=== PATIENT | female | born 1965 | race Caucasian/White ===

== ENCOUNTER 2018-06-22 09:04 | Emergency (ER) | payer MEDICAID ==
[~2018-06-22] VITALS: Ht 167.6 cm; Wt 154.6 kg
[~2018-06-22 09:04] MED LIST: AZIT-63 PO; BENZ-16 PO; GUAI10SY2 PO; HYDR-565 PO; LEVA15HF4 IH; NO HOME MEDS; ONDA4TAB12 PO; ORPH100T2 PO; PRED20TA PO; PSEU-225 PO
[2018-06-22 09:59] LABS: BASOPHILS % (AUTO) 0.4 % (0-1); EOSINOPHILS # (AUTO) 0.3 X10'3 (0-0.9); EOSINOPHILS % (AUTO) 2.8 % (0-6); HEMATOCRIT 39.2 % (35.0-45.0); HEMOGLOBIN 13.2 g/dl (12.0-16.0); LYMPHOCYTES # (AUTO) 1.4 X10'3 (1.1-4.8); LYMPHOCYTES % (AUTO) 15.2 % (21-51); MEAN CORPUSCULAR HEMOGLOBIN 31.2 PG (27.0-31.0); MEAN CORPUSCULAR HGB CONC 33.8 % (33.0-36.5); MEAN CORPUSCULAR VOLUME 92.6 FL (78-98); MEAN PLATELET VOLUME 8.2 FL (7.4-10.4); MONOCYTES # (AUTO) 0.4 X10'3 (0-0.9); MONOCYTES % (AUTO) 4.7 % (2-12); NEUTROPHILS # (AUTO) 6.9 X10'3 (1.8-7.7); NEUTROPHILS % (AUTO) 76.9 % (42-75); PLATELET COUNT 317 X10'3 (140-440); RED BLOOD COUNT 4.24 X10'6 (4.20-5.60); RED CELL DISTRIBUTION WIDTH 13.3 % (11.5-14.5)
[2018-06-22 10:07] LABS: INR 0.9 INR; PROTHROMBIN TIME 9.8 SECONDS (9.0-12.0)
[2018-06-22 10:13] LABS: ALANINE AMINOTRANSFERASE 50 U/L (12-78); ALBUMIN 3.7 G/DL (3.4-5.0); ALBUMIN/GLOBULIN RATIO 0.9 (1.1-1.5); ALKALINE PHOSPHATASE 102 IU/L (46-116); ANION GAP 11 (8-16); ASPARTATE AMINO TRANSFERASE 39 U/L (10-37); BILIRUBIN,TOTAL 0.5 MG/DL (0.1-1.0); BLOOD UREA NITROGEN 10 MG/DL (7-18); BUN/CREATININE RATIO 9.3 (6.6-38.0); CALCIUM 9.5 MG/DL (8.5-10.1); CHLORIDE 102 MMOL/L (99-107); CREATININE 1.08 MG/DL (0.40-0.90); GLUCOSE 149 MG/DL (70-104); POTASSIUM 3.9 MMOL/L (3.5-5.1); SODIUM 138 MMOL/L (135-145); TOTAL CARBON DIOXIDE 24.7 MMOL/L (24-32); TOTAL PROTEIN 7.8 G/DL (6.4-8.2); eGFR 53 ML/MIN
[2018-06-22] MEDS ORDERED: ondansetron/PF 4mg/2ml inj IV ONE (10:20)
[2018-06-22] MEDS ORDERED: morphine 4 MG/ML inj SYRINge IV ONE (10:20)
[2018-06-22] MEDS ORDERED: ketorolac trometh. 30mg/ml inj. IV ONE (10:20)
[2018-06-22] MEDS ORDERED: normal saline 1000ML IV soln IVB ONE (10:20)
[2018-06-22 10:38] LABS: URINE HCG NEGATIVE (NEG)
[2018-06-22 10:41] LABS: CLARITY,URINE SLIGHTLY CLOUDY (Clear); COLOR,URINE YELLOW (Yellow); GLUCOSE, URINE NEGATIVE (Neg); KETONES,URINE TRACE mg/dl (Neg); LEUKOCYTE ESTERASE ,URINE NEGATIVE (Neg); NITRITES, URINE NEGATIVE (Neg); OCCULT BLOOD,URINE SMALL (Neg); PROTEIN,URINE TRACE mg/dl (Neg); UA COLLECTION TYPE CLN CATCH MIDSTREAM
[2018-06-22 10:50] LABS: BACTERIA,URINE FEW /HPF (Neg); MUCUS STRANDS MODERATE /LPF (Neg); RBC,URINE 0-2 /HPF (0-2); SQUAMOUS EPITHELIAL CELL,UR MODERATE /LPF (FEW); WBC,URINE 0-4 /HPF (0-4)
[2018-06-22] MEDS ORDERED: ONDA4TAB6 PO (12:21)
[2018-06-22 12:46] VITALS: BP 106/60
== END 2018-06-22 12:49 | disposition home or self-care (01) ==
LOC: ER 09:04
DX: R10.31 Right lower quadrant pain (principal); I10 Essential (primary) hypertension; Z79.2 Long term (current) use of antibiotics; Z79.899 Other long term (current) drug therapy
CPT/HCPCS: 36415; 74176; 80053; 81001; 81025; 85025; 85610; 96374; 96375; 99285; J1885; J2270; J2405; J7030

== ENCOUNTER 2018-07-01 14:58 | Inpatient (IN) | payer MEDICAID, OTHER ==
[~2018-07-01] VITALS: Ht 167.6 cm; Wt 154.6 kg
[~2018-07-01 14:58] MED LIST changes: +ONDA4TAB6 PO
[2018-07-01 15:45] LABS: CLARITY,URINE SLIGHTLY CLOUDY (Clear); COLOR,URINE YELLOW (Yellow); GLUCOSE, URINE NEGATIVE (Neg); KETONES,URINE TRACE mg/dl (Neg); LEUKOCYTE ESTERASE ,URINE NEGATIVE (Neg); NITRITES, URINE NEGATIVE (Neg); OCCULT BLOOD,URINE NEGATIVE (Neg); PROTEIN,URINE NEGATIVE (Neg)
[2018-07-01 15:46] LABS: URINE HCG NEGATIVE (NEG)
[2018-07-01 15:49] LABS: UA COLLECTION TYPE CLN CATCH MIDSTREAM
[2018-07-01 15:50] LABS: BACTERIA,URINE 1+ /HPF (Neg); HYALINE CASTS 0-3 /LPF (NEGATIVE); MUCUS STRANDS MODERATE /LPF (Neg); SQUAMOUS EPITHELIAL CELL,UR MODERATE /LPF (FEW)
[2018-07-01 15:51] LABS: RBC,URINE 0-2 /HPF (0-2); WBC,URINE 0-4 /HPF (0-4)
[2018-07-01 16:32] LABS: BASOPHILS # (AUTO) 0.2 X10'3 (0-0.2); BASOPHILS % (AUTO) 1.4 % (0-1); EOSINOPHILS # (AUTO) 0.4 X10'3 (0-0.9); EOSINOPHILS % (AUTO) 3.6 % (0-6); HEMATOCRIT 33.9 % (35.0-45.0); HEMOGLOBIN 11.4 g/dl (12.0-16.0); LYMPHOCYTES # (AUTO) 1.7 X10'3 (1.1-4.8); LYMPHOCYTES % (AUTO) 15.8 % (21-51); MEAN CORPUSCULAR HEMOGLOBIN 31.2 PG (27.0-31.0); MEAN CORPUSCULAR HGB CONC 33.5 % (33.0-36.5); MEAN CORPUSCULAR VOLUME 93.1 FL (78-98); MEAN PLATELET VOLUME 7.4 FL (7.4-10.4); MONOCYTES # (AUTO) 0.6 X10'3 (0-0.9); MONOCYTES % (AUTO) 5.5 % (2-12); NEUTROPHILS # (AUTO) 7.8 X10'3 (1.8-7.7); NEUTROPHILS % (AUTO) 73.7 % (42-75); PLATELET COUNT 464 X10'3 (140-440); RED BLOOD COUNT 3.64 X10'6 (4.20-5.60); RED CELL DISTRIBUTION WIDTH 13.5 % (11.5-14.5); WHITE BLOOD COUNT 10.7 X10'3 (4.5-11.0)
[2018-07-01 16:46] LABS: ALANINE AMINOTRANSFERASE 37 U/L (12-78); ALBUMIN 3.2 G/DL (3.4-5.0); ALBUMIN/GLOBULIN RATIO 0.7 (1.1-1.5); ALKALINE PHOSPHATASE 107 IU/L (46-116); ANION GAP 8 (8-16); ASPARTATE AMINO TRANSFERASE 31 U/L (10-37); BILIRUBIN,TOTAL 0.5 MG/DL (0.1-1.0); BLOOD UREA NITROGEN 8 MG/DL (7-18); BUN/CREATININE RATIO 8.8 (6.6-38.0); CALCIUM 9.2 MG/DL (8.5-10.1); CHLORIDE 102 MMOL/L (99-107); CREATININE 0.91 MG/DL (0.40-0.90); GLUCOSE 128 MG/DL (70-104); LIPASE 163 U/L (73-393); POTASSIUM 3.9 MMOL/L (3.5-5.1); SODIUM 142 MMOL/L (135-145); TOTAL CARBON DIOXIDE 32.2 MMOL/L (24-32); TOTAL PROTEIN 7.5 G/DL (6.4-8.2); eGFR 65 ML/MIN
[2018-07-01] MEDS ORDERED: ondansetron/PF 4mg/2ml inj IV ONE (16:55)
[2018-07-01] MEDS ORDERED: normal saline 1000ML IV soln IVB ONE (16:55)
[2018-07-01] MEDS ORDERED: iohexol 300mg/ml 100ml inj. ONE (16:56)
[2018-07-01] MEDS: morphine 4 MG/ML inj SYRINge IV PRN ×3 (16:59→17:58)
[2018-07-01] MEDS ORDERED: morphine 4 MG/ML inj SYRINge IV PRN ×2 (17:35→17:45)
[2018-07-01 18:19] LABS: TOTAL CELLS COUNTED 100
[2018-07-01 18:20] LABS: ANISOCYTOSIS FEW; PLATELET ESTIMATE INCREASED
[2018-07-01 18:21] LABS: TOXIC GRANULATION 1+; TOXIC VACUOLATION FEW
[2018-07-01 18:22] LABS: POLYCHROMASIA 1+
[2018-07-01] MEDS ORDERED: LISI-600 PO (18:53)
[2018-07-01] MEDS ORDERED: LISI1TAB9 (18:55)
[2018-07-01] MEDS ORDERED: PER5325T (18:55)
[2018-07-01] MEDS ORDERED: ketorolac trometh. 30mg/ml inj. IV ONE (19:55)
[2018-07-01] MEDS ORDERED: methylnaltrexone br 12mg/0.6ml inj***SubQ only SQ ONE (19:55)
[2018-07-01] MEDS ORDERED: magnesium hydroxide 30ml (MOM) UD suspension PO ONE (19:55)
[2018-07-01] MEDS ORDERED: mag hydrox/Alum hydrox/simeth 30ml oral suspension PO PRN (20:40)
[2018-07-01] MEDS ORDERED: acetaminophen 325mg tablet PO PRN (20:40)
[2018-07-01] MEDS ORDERED: potassium Cl 20 mEq SR tablet PO PRN ×2 (20:40)
[2018-07-01] MEDS ORDERED: magnesium 1gm/100ml D5W IVPB 100 ML IV PRN (20:40)
[2018-07-01] MEDS ORDERED: magnesium hydroxide 30ml (MOM) UD suspension PO PRN (20:40)
[2018-07-01] MEDS ORDERED: potassium Cl 40MEQ/NS 500ml 500 ML IV PRN ×2 (20:40)
[2018-07-01] MEDS ORDERED: ondansetron/PF 4mg/2ml inj IV PRN (20:40)
[2018-07-01] MEDS ORDERED: magnesium 4gm in 100ml NS 100 ML IV PRN (20:40)
[2018-07-01] MEDS: bisacodyl 10mg suppository rectal RC SCH (21:04)
[2018-07-01 22:00] VITALS: BP 147/46
[2018-07-01] MEDS: normal saline 1000ml 1,000 ML IV SCH (22:39)
[2018-07-02] MEDS: metoclopramide 5 mg/ml inj IV SCH ×2 (00:07→09:01)
[2018-07-02 05:44] LABS: BASOPHILS % (AUTO) 0.3 % (0-1); EOSINOPHILS # (AUTO) 0.3 X10'3 (0-0.9); EOSINOPHILS % (AUTO) 3.4 % (0-6); HEMATOCRIT 29.5 % (35.0-45.0); HEMOGLOBIN 9.8 g/dl (12.0-16.0); LYMPHOCYTES # (AUTO) 1.5 X10'3 (1.1-4.8); MEAN CORPUSCULAR HEMOGLOBIN 31.2 PG (27.0-31.0); MEAN CORPUSCULAR HGB CONC 33.2 % (33.0-36.5); MEAN CORPUSCULAR VOLUME 93.9 FL (78-98); MEAN PLATELET VOLUME 7.3 FL (7.4-10.4); MONOCYTES # (AUTO) 0.6 X10'3 (0-0.9); MONOCYTES % (AUTO) 5.7 % (2-12); NEUTROPHILS # (AUTO) 7.4 X10'3 (1.8-7.7); NEUTROPHILS % (AUTO) 75.6 % (42-75); PLATELET COUNT 354 X10'3 (140-440); RED BLOOD COUNT 3.15 X10'6 (4.20-5.60); RED CELL DISTRIBUTION WIDTH 14.4 % (11.5-14.5); WHITE BLOOD COUNT 9.7 X10'3 (4.5-11.0)
[2018-07-02 05:57] LABS: ALANINE AMINOTRANSFERASE 32 U/L (12-78); ALBUMIN 2.8 G/DL (3.4-5.0); ALBUMIN/GLOBULIN RATIO 0.8 (1.1-1.5); ALKALINE PHOSPHATASE 92 IU/L (46-116); ANION GAP 8 (8-16); ASPARTATE AMINO TRANSFERASE 24 U/L (10-37); BILIRUBIN,TOTAL 0.4 MG/DL (0.1-1.0); BLOOD UREA NITROGEN 8 MG/DL (7-18); BUN/CREATININE RATIO 7.8 (6.6-38.0); CALCIUM 8.5 MG/DL (8.5-10.1); CHLORIDE 102 MMOL/L (99-107); CREATININE 1.02 MG/DL (0.40-0.90); GLUCOSE 112 MG/DL (70-104); POTASSIUM 3.7 MMOL/L (3.5-5.1); SODIUM 141 MMOL/L (135-145); TOTAL CARBON DIOXIDE 31.3 MMOL/L (24-32); TOTAL PROTEIN 6.5 G/DL (6.4-8.2); eGFR 57 ML/MIN
[2018-07-02 06:00] VITALS: BP 107/57
[2018-07-02] MEDS: normal saline 1000ml 1,000 ML IV SCH (07:26)
[2018-07-02] MEDS ORDERED: K and/or MAG REPLACEMENT MC SCH (08:00)
[2018-07-02] MEDS: bisacodyl 10mg suppository rectal RC SCH (08:00)
[2018-07-02 10:00] VITALS: BP 114/60
== END 2018-07-02 12:50 | disposition home or self-care (01) | DRG 252 ==
LOC: ER 14:58 → ED HOLD 20:37 → EDBEDREQ 21:45 → ORTHO 4S 21:50
PROVIDERS: ADMIT Family Medicine; ATTEND Family Medicine
PROC: BW211ZZ Computerized Tomography (CT Scan) of Abdomen and Pelvis using Low Osmolar Contrast (ICD-10-PCS; principal; 2018-07-01)
DX: K91.89 Other postprocedural complications and disorders of digestive system (principal); Z68.43 Body mass index [BMI] 50.0-59.9, adult; K76.0 Fatty (change of) liver, not elsewhere classified; K56.7 Ileus, unspecified; D64.9 Anemia, unspecified; G89.18 Other acute postprocedural pain; E66.8 Other obesity; I10 Essential (primary) hypertension; Z90.49 Acquired absence of other specified parts of digestive tract; Z79.899 Other long term (current) drug therapy; Z82.49 Family history of ischemic heart disease and other diseases of the circulatory system; Z83.3 Family history of diabetes mellitus; Y92.89 Other specified places as the place of occurrence of the external cause
CPT/HCPCS: 36415; 74177; 80053; 81001; 81025; 83690; 83735; 85025; 85610; 87070; 96372; 96374; 96375; 99285; J1885; J2270; J2405; J2765; J7030; Q9967